=== PATIENT | male | born 1995 | race Caucasian/White ===

== ENCOUNTER 2018-11-29 19:38 | Emergency (ER) | payer MEDICARE, MEDICAID, SELFPAY ==
[2018-11-29 19:39] VITALS: BP 168/83; PULSE 109; RESP 9; TEMP 37.2; O2SAT 95; BMI 49.1
--- NOTE | 2018-11-29 20:28 | EKG12_ITS ---
Test Reason : PALPITATIONS Blood Pressure : / mmHG Vent. Rate : 095 BPM Atrial Rate : 095 BPM P-R Int : 166 ms QRS Dur : 094 ms QT Int : 364 ms P-R-T Axes : 029 -04 027 degrees QTc Int : 457 ms Normal sinus rhythm Normal ECG Confirmed by SYED GAN ([id number]), editorial director KIM MONTES ([id number]) on 12/03/2018 4:48:24 PM Referred By: ALEX Confirmed By:SYED GAN
--- NOTE | 2018-11-29 21:00 | RAD_ITS ---
STUDY: X-RAY CHEST REASON FOR EXAM: Male, 23 years old. Palpitations. TECHNIQUE: PA and lateral. COMPARISON: None. FINDINGS: The lungs are clear and expanded. There is no demonstrated pleural abnormality. Normal size heart. Normal mediastinum and teo. Normal visualized pulmonary arteries. Normal visualized aortic arch and descending thoracic aorta. Normal visualized thoracic spine. Normal visualized ribs, clavicles, and shoulders. There is no demonstrated abnormality of the visualized soft tissue structures of the upper abdomen. RAD/Chest PA and Lateral IMPRESSION: Normal x-ray examination of the chest. Electronically Signed: Arlette Carlisle MD at 21:59 EDT Tel , Service support ,
[2018-11-29 21:04] LABS: Absolute Lymphocyte Count 1.53 X10^3/ul (0.83-4.51); Absolute Neutrophil Count 4.5 X10^3/uL (2.0-7.7); Basophil# 0.02 X10^3/uL; Basophil% 0.3 % (0-1); Eosinophil# 0.11 X10^3/uL; Eosinophils% 1.5 % (0-5); Hemoglobin 13.5 g/dl (13.0-16.5); Lymphocyte # 1.53 X10^3/ul (4.0); Lymphocyte % 21.1 % (19-41); Mean Corp Hgb Conc 32.9 g/gl (32-36); Mean Corpuscular Hgb 28.1 pg (27.0-32.0); Mean Corpuscular Volume 85.4 fL (80-94); Mean Platelet Vol. 12.5 fl (6.2-12.0); Monocyte# 1.06 X10^3/uL; Monocyte% 14.6 % (0-10); Neutrophil # 4.51 X10^3/uL (2.7-7.7); Neutrophil % 62.2 % (47-70); POSITIVE COUNT NO; POSITIVE DIFFERENTIAL NO; POSITIVE MORPHOLOGY NO; Platelet Count 218 K/mm3 (150-450); RBC Distribution Width SD 42.9 fl (35.1-43.9); White Blood Count 7.3 K/mm3 (4.4-11.0)
[2018-11-29 21:17] LABS: Anion Gap 8 (5-15); BUN 13 mg/dL (7-18); BUN/Creat Ratio 11.4 RATIO (10-20); Calcium,Total 9.1 mg/dL (8.5-10.1); Chloride 105 mmol/L (98-107); Creatinine, Serum 1.14 mg/dL (0.70-1.30); EST Glomerular Filtration Rate 84 mL/min (>60); Est Glom Filt Rate - Afr Amer 101 mL/min (>60); Estimated Creatinine Clearance 122.67 ml/min; Glucose 103 mg/dL (74-106); Potassium 3.7 mmol/L (3.5-5.1); Sodium Level 137 mmol/L (136-145)
[2018-11-29 21:38] VITALS: BP 167/81; PULSE 81; RESP 24; O2SAT 96
[2018-11-29 23:00] VITALS: BP 161/98; PULSE 86; RESP 21; O2SAT 96
--- NOTE | 2018-11-29 23:43 | ED.VISSUMM ---
- ER Visit Summary Date of Service: 11/29/18 Chief Complaint: Palpitations History of Present Illness: The patient is a 23 M who presents with palpitations that became worse today. Patient states he felt like his heart was racing. Patient states these are intermittent. Patient states it is worsened with coughing. Patient states he did have some shortness of breath and diaphoresis with this. Patient also states he has had recent cough and acid reflux symptoms. Physical Examination: Vital signs are stable. Patient is afebrile. Patient is in no acute distress. Oral mucosa is pink and moist. Neck is supple. Trachea is midline. There is no JVD noted. Heart was regular rate and rhythm. Lungs are clear and equal bilateral. Abdomen is soft. Bowel sounds are normal. There is no tenderness. There is no guarding noted. Skin is warm dry. Cranial nerves II through XII are intact. There are no focal motor or sensory deficits noted. The remaining physical exam is within normal limits. Test Results: EKG showed normal sinus rhythm with a rate of 95. There are no acute ST or T wave changes. CBC, basic metabolic profile, and troponin were obtained and were normal. Chest x-ray does not show any acute cardiopulmonary process. Emergency Department Course and Treatment: Patient had no further episodes of palpitations here in the emergency department. Patient was instructed to follow-up with his primary care physician in 5-7 days. Patient understood and was agreeable with the plan. All questions were answered. Disposition: Discharge home Impression: Palpitations This note was generated with [employer] dictation software. It may contain incorrect words, spelling, and punctuation that were not noted in review of the chart prior to signing ED Disposition - Plan for ED Patient: Disposition: Home or Assisted Living Diagnosis: Palpitations Instructions: ED Palpitations Referrals: [facility] Doctor,Out of [Primary Care Provider] - Keep James appointment
== END 2018-11-30 | disposition home or self-care (01) ==
PROVIDERS: Emergency Provider Emergency Medicine
DX: R00.2 Palpitations (principal); J45.909 Unspecified asthma, uncomplicated; K21.9 Gastro-esophageal reflux disease without esophagitis
CPT/HCPCS: 71046; 80048; 84484; 85025; 93005; 99285; A4216

== ENCOUNTER 2022-06-25 00:22 | Emergency (ER) | payer MEDICARE, MEDICAID, SELFPAY ==
[2022-06-25 00:24] VITALS: BP 147/98; PULSE 85; RESP 18; TEMP 36.8; O2SAT 97; BMI 56.6
--- NOTE | 2022-06-25 00:48 | EDS_ITS ---
HPI History of Present Illness Chief Complaint: Lower Extremity Injury Informant: patient Narrative Narrative: Patient complains of some increased discomfort of his right foot mostly near the small toe. This has been occurring over the last day. He took dressings off today and got some drainage from the small toe and an area on the right second toe also. About 2 weeks ago he had excision of warts from his toe by Dr. Harris in the office. He has been doing well until he started to have increased pain today and then some drainage. No fevers chills or sweats. He has a history of intermittent A. fib but no anticoagulation. He has a history of high blood pressure. No diabetes. He has not had fevers or chills. [facility] Medical History HTN (hypertension) Mitral valve regurgitation Pulmonic valve regurgitation Stroke Home Medications amlodipine 5 mg tablet 5 mg PO DAILY 05/23/16 [History Last Taken 05/23/16] ergocalciferol (vitamin D2) 1,250 mcg (50,000 unit) capsule (Vitamin D2) 50,000 unit PO Q7D 05/23/16 [History Last Taken Unknown] doxycycline monohydrate 100 mg capsule 100 mg PO BID #20 caps 06/25/22 [Rx Last Taken Unknown] Allergy/AdvReac Type Severity Reaction Status Date / Time erythromycin base Allergy Anaphylaxis Verified 11/29/18 19:39 [From Erythrocin] gentamicin Allergy Anaphylaxis Verified 11/29/18 19:39 Penicillins [PCN] Allergy Rash Verified 05/23/16 19:38 sertraline [From Zoloft] Allergy Anaphylaxis Verified 11/29/18 19:39 tramadol Allergy Other Verified 05/23/16 19:38 adhesive [adhesives] AdvReac Hives Verified 06/25/22 00:24 Social History Smoking Status: Never smoker ROS ROS ED Constitutional Constitutional ED: Denies chills or fever(s) Cardiovascular Cardiovascular: Denies chest pain or palpitations Respiratory/Chest Respiratory/Chest: Denies cough or dyspnea Gastrointestinal Gastrointestinal: Denies nausea or vomiting Musculoskeletal Musculoskeletal: Reports other Details: Right foot pain as in history of present illness. Integumentary Reports rash and other Details: Drainage and slight redness to the right small and second toe. Neurologic Neurologic: Denies paresthesias Endocrine Endocrinology: Denies polydipsia or polyuria Hematologic/Lymphatic Hematologic/Lymphatic: Denies lymphadenopathy Allergic/Immunologic Allergic/Immunologic ED: Denies urticaria EXAM Physical Exam Const Vital Signs: 06/25/22 00:24 Temperature 98.3 F Temperature Source Oral Pulse Rate 85 Respiratory Rate 18 Blood Pressure 147/98 H Blood Pressure Mean 114 Pulse Ox 97 Oxygen Delivery Method Room Air Positive well nourished and well developed General Appearance ED: well developed HEENT atraumatic Resp normal respiratory effort Extremity Extremity Narrative: Patient does have healing areas where there was excision done. But these areas are still bit open. There is just a hint of erythema developing around both of these areas on the second and fifth toe. There is no swelling of the foot or lymphangitic streaking at this point. No drainage currently although he had some on dressings when they were removed. Neuro no sensory deficits noted Skin Skin Narrative: See above. MDM MDM MDM Narrative Medical decision making narrative: Patient just has some early indication of wound infections with some erythema pain and drainage. We will treat him with antibiotics. We will use doxycycline which he has tolerated and been successful with in the past. He has missed a couple postoperative check appointments but I encouraged him to follow-up this week to be reseen and rechecked. Discharge Plan Triage Chief Complaint: Lower Extremity Injury ED Provider: Tommy Jimenez Dx/Rx/DC Orders Clinical Impression: Postoperative wound infection Instructions: ED Wound Infection after surgery Prescriptions: New doxycycline monohydrate 100 mg capsule 100 mg PO BID Qty: 20 0RF No Action amlodipine 5 MG tablet 5 mg PO DAILY ergocalciferol (vitamin D2) [Vitamin D2] 50,000 UNIT capsule 50,000 unit PO Q7D Primary Care Provider: Chevy White,Out of Referrals: Chevy White,Out of [Primary Care Provider] - Activity Restrictions/Additional Instructions: Follow-up with Dr. Harris. Disposition Disposition: Home, Self Care
[2022-06-25] MEDS: Doxycycline 100 MG CAPSULE PO (01:22)
== END 2022-06-25 01:33 | disposition home or self-care (01) ==
PROVIDERS: Emergency Provider Emergency Medicine; Visit Provider Emergency Medicine
DX: T81.49XA Infection following a procedure, other surgical site, initial encounter (principal); I10 Essential (primary) hypertension; Z79.899 Other long term (current) drug therapy
CPT/HCPCS: 99283

== ENCOUNTER → 2022-11-16 | Emergency (ER) | payer MEDICARE, MEDICAID, SELFPAY ==
--- NOTE | 2022-11-16 05:13 | EX.ED.DYSGE1 ---
HPI History of Present Illness Informant: patient Narrative Narrative: Patient presents noticing redness under his abdominal fold. He states he is staying with his uncle and he took a shower. He was cleaning the area and noticed that it burned when he wiped. His uncle looked at it and said he already placed a towel under there to keep it dry. Patient states he put a towel there but it did not go away. But it was just found this evening. He has no systemic symptoms. He has no diabetes in the past and he is not having polyuria polydipsia. No fevers or chills. No other complaints. No other areas of a rash. Nothing makes it better or worse but he just found it hours ago. Our computer systems were currently down in the emergency department. This prevents review of prior records, visits, labs, studies, etc. currently have no access to prior history. This limits access to history that the patient may not be familiar with and limits comparison of current data to past data. [facility] Medical History HTN (hypertension) Mitral valve regurgitation Pulmonic valve regurgitation Stroke Home Medications amlodipine 5 mg tablet 5 mg PO DAILY 05/23/16 [History Last Taken 05/23/16] ergocalciferol (vitamin D2) 1,250 mcg (50,000 unit) capsule (Vitamin D2) 50,000 unit PO Q7D 05/23/16 [History Last Taken Unknown] doxycycline monohydrate 100 mg capsule 100 mg PO BID #20 caps 06/25/22 [Rx Last Taken Unknown] Allergy/AdvReac Type Severity Reaction Status Date / Time erythromycin base Allergy Anaphylaxis Verified 11/29/18 19:39 [From Erythrocin] gentamicin Allergy Anaphylaxis Verified 11/29/18 19:39 Penicillins [PCN] Allergy Rash Verified 05/23/16 19:38 sertraline [From Zoloft] Allergy Anaphylaxis Verified 11/29/18 19:39 tramadol Allergy Other Verified 05/23/16 19:38 adhesive [adhesives] AdvReac Hives Verified 06/25/22 00:24 Social History Smoking Status: Never smoker ROS ROS ED Constitutional Constitutional ED: Denies chills or fever(s) ENT ENT ED: Denies sore throat Cardiovascular Cardiovascular: Denies chest pain Respiratory/Chest Respiratory/Chest: Denies cough or dyspnea Gastrointestinal Gastrointestinal: Denies nausea or vomiting Musculoskeletal Musculoskeletal: Denies back pain or neck pain Integumentary Reports rash Endocrine Endocrinology: Denies polydipsia or polyuria Hematologic/Lymphatic Hematologic/Lymphatic: Denies easy bleeding or easy bruising Allergic/Immunologic Allergic/Immunologic ED: Denies urticaria EXAM Physical Exam Narrative Exam Narrative: Patient awake alert no acute distress. He does have obesity. HEENT shows no sign of trauma. No thrush. Lungs are clear. Heart is regular. Abdomen is obese but not tender. When we lift up his pannus there is erythema under the fold mostly in the mid section. It has a well demarcated edge with some satellite lesions all consistent with yeast. There is no sign of a cellulitis. There were no signs of yeast under the breast tissue. Really not having much in the inguinal folds either. shows no suprapubic tenderness or CVA tenderness Neurologically patient is alert and appropriate. MDM MDM MDM Narrative Medical decision making narrative: Patient has signs of yeast in skin folds under her abdomen. He is encouraged to keep the area clean and dry and keeping a towel between the area may help this quite a bit. We will write for clotrimazole cream as well is I will write for Diflucan at 200 mg once a week for 4 weeks. He should follow-up with his physician. If this redness spreads out, becomes painful, develops fevers chills or drainage he may need to return. Discharge Plan Triage ED Provider: Tommy Jimenez Dx/Rx/DC Orders Clinical Impression: Lisa infection Prescriptions: No Action amlodipine 5 MG tablet 5 mg PO DAILY ergocalciferol (vitamin D2) [Vitamin D2] 50,000 UNIT capsule 50,000 unit PO Q7D doxycycline monohydrate 100 mg capsule 100 mg PO BID Qty: 20 0RF Primary Care Provider: JUANA OBRIEN Referrals: JUANA OBRIEN [Other] Disposition Disposition: Home, Self Care
== END | disposition home or self-care (01) ==
PROVIDERS: Emergency Provider Emergency Medicine; Visit Provider Emergency Medicine
DX: B37.2 Candidiasis of skin and nail (principal); I10 Essential (primary) hypertension; Z79.899 Other long term (current) drug therapy
CPT/HCPCS: 99282

== ENCOUNTER 2023-02-06 16:20 | Emergency (ER) | payer MEDICARE, MEDICAID, SELFPAY ==
[2023-02-06 16:20] VITALS: BP 149/95; PULSE 75; RESP 16; TEMP 36.4; O2SAT 98; BMI 57.5
--- NOTE | 2023-02-06 16:46 | EX.ED.DYSGE1 ---
HPI History of Present Illness Chief Complaint: Ear Problem Informant: patient Narrative Narrative: Patient presenting with right ear pain since he had tympanostomy tubes placed in both the ears 1 week ago by his pool technician from [place], [place] who did this closer to his home in [place]. He has been trying to get back in but he is out of town and there is no one else for him to see there, patient states he has had pain just caudal to the right ear without any discharge, fevers, chills, bleeding for the past week and this is the fourth ER visit he has had since then, stating that no one else has been able to help him. He has had no testing nor has he had any prescriptions given at the prior visits. He denies any new symptoms. He has ofloxacin drops that were given to him to use postoperatively and he has been doing those as instructed in both ears. He states he has no issues with the left ear. [facility] Medical History (Updated 02/06/23 @ 17:[address] Wang Baltazar MD) HTN (hypertension) Mitral valve regurgitation Past heart attack Pulmonic valve regurgitation Stroke Home Medications amlodipine 5 mg tablet 5 mg PO DAILY 05/23/16 [History Last Taken 05/23/16] ergocalciferol (vitamin D2) 1,250 mcg (50,000 unit) capsule (Vitamin D2) 50,000 unit PO Q7D 05/23/16 [History Last Taken Unknown] doxycycline monohydrate 100 mg capsule 100 mg PO BID #20 caps 06/25/22 [Rx Last Taken Unknown] cephalexin 500 mg capsule 500 mg PO TID #21 CAPSULES 02/06/23 [Rx Last Taken Unknown] Allergy/AdvReac Type Severity Reaction Status Date / Time erythromycin base Allergy Anaphylaxis Verified 11/29/18 19:39 [From Erythrocin] gentamicin Allergy Anaphylaxis Verified 11/29/18 19:39 Penicillins [PCN] Allergy Rash Verified 05/23/16 19:38 sertraline [From Zoloft] Allergy Anaphylaxis Verified 11/29/18 19:39 tramadol Allergy Other Verified 05/23/16 19:38 adhesive [adhesives] AdvReac Hives Verified 06/25/22 00:24 Social History Smoking Status: Never smoker ROS ROS ED Constitutional Constitutional ED: Denies chills or fever(s) ENT ENT ED: Reports ear pain right; Denies rhinorrhea or sore throat Musculoskeletal Musculoskeletal: Reports neck pain; Denies back pain Integumentary Denies abscess, Abrasions or rash Neurologic Neurologic: Denies headache(s), paresthesias or weakness EXAM Physical Exam Const Vital Signs: 02/06/23 16:20 02/06/23 16:59 Temperature 97.6 F L Temperature Source Temporal Pulse Rate 75 86 Respiratory Rate 16 16 Blood Pressure 149/95 H 127/80 H Blood Pressure Mean 113 95 Pulse Ox 98 96 Oxygen Delivery Method Room Air Room Air Positive well nourished, well developed and obese General Appearance ED: well developed and NAD Nutritional Appearance: obese HEENT Reports moist mucous membranes HEENT Narrative: Normal intraoral/posterior oropharyngeal exam. Normal bilateral EAC and TM exam, he has scarring on both TMs, no erythema, tympanostomy tubes in place bilaterally with no discharge or bleeding from them, and no discomfort with manipulating the tragus or pinna on both ears. No tenderness at the mastoid process on the right, but he does have tenderness just caudal to this, with a few probable enlarged mobile tender lymph nodes superficial cervical/periauricular. No anterior auricular nodes or parotid tenderness/swelling. Eyes PERRL and EOMs intact bilaterally Neck supple Neck Narrative: Tender lymphadenopathy right side otherwise supple with full range of motion Resp normal respiratory effort Extremity normal to inspection Neuro oriented x3, CN's II-XII intact bilaterally, no sensory deficits noted and gait normal Motor Exam: strength 5/5 throughout Psych mental status grossly normal Skin no rashes or lesions noted and no wounds MDM MDM MDM Narrative Medical decision making narrative: Obtained a CT scan of the ear/orbit/sella/skull base. I reviewed the images and the radiologist report and I agree with it. Basically negative for anything acute. The cause of the right periauricular lymphadenopathy is unknown, but least we were able to rule out dangerous phenomena such as malignant otitis media, mastoiditis. Given that he has been seen reportedly 4 times for this in the past week, I am going to put him on cephalexin empirically and advised that he try to follow-up with someone in the office is soon as possible. He is allergic to penicillin, it is not anaphylaxis so we will try cephalexin. Radiography Diagnostic Testing: Clinical Impression(s) from Imaging Studies CT Orbit Sella Inner 02/06/23 17:15 IMPRESSION: Negative CT of the internal auditory canals and temporal bones. Electronically Signed: Krystian Paz MD at 17:40 EDT Reading Location ID and State: [facility] / [place] , Service support , Discharge Plan Triage Chief Complaint: Ear Problem ED Provider: Wang Baltazar Dx/Rx/DC Orders Clinical Impression: Lymphadenopathy, periauricular, History of tympanostomy tube placement Instructions: ED Earache Without Infection (Adult) Prescriptions: New cephalexin [cephalexin] 500 mg capsule 500 mg PO TID Qty: 21 0RF No Action amlodipine 5 MG tablet 5 mg PO DAILY ergocalciferol (vitamin D2) [Vitamin D2] 50,000 UNIT capsule 50,000 unit PO Q7D doxycycline monohydrate 100 mg capsule 100 mg PO BID Qty: 20 0RF Primary Care Provider: Brian Carter Referrals: [facility] Doctor,Out of [Non-Staff] - Doctor,Your [Non-Staff] - As soon as possible (Call your ENT office to make an appointment with any provider as soon as possible at any location) Disposition Disposition: Home, Self Care
[2023-02-06 16:59] VITALS: BP 127/80; PULSE 86; RESP 16; O2SAT 96
--- NOTE | 2023-02-06 17:15 | CT_ITS ---
EXAM: CT TEMPORAL BONES WITHOUT INTRAVENOUS CONTRAST CLINICAL INDICATION: ear pain TECHNIQUE: Routine CT protocol was performed of the internal auditory canals and temporal bones without intravenous contrast. 2-D reformats were performed by the technologist. This CT exam was performed using one or more of the following dose reduction techniques: automated exposure control, adjustment of the mA and/or kV according to patient size, and/or use of iterative reconstruction technique. RADIATION DOSE: CTDIvol = 67.58 mGy, DLP = 941.49 mGy-cm COMPARISON: No relevant prior studies available. FINDINGS: RIGHT OSSICLES AND MIDDLE EAR: Unremarkable. Well aerated. Ossicles and scutum intact. RIGHT COCHLEA: Unremarkable. RIGHT VESTIBULE: Unremarkable. RIGHT SEMICIRCULAR CANALS: Unremarkable. RIGHT INTERNAL AUDITORY CANAL: Unremarkable. No osseous erosion or widening of the canal. RIGHT EXTERNAL AUDITORY CANAL: Clear. RIGHT MASTOID AIR CELLS: Unremarkable. Well aerated. LEFT OSSICLES AND MIDDLE EAR: Unremarkable. Well aerated. Ossicles and scutum intact. LEFT COCHLEA: Unremarkable. LEFT VESTIBULE: Unremarkable. LEFT SEMICIRCULAR CANALS: Unremarkable. LEFT INTERNAL AUDITORY CANAL: Unremarkable. No osseous erosion or widening of the canal. LEFT EXTERNAL AUDITORY CANAL: Clear. LEFT MASTOID AIR CELLS: Unremarkable. Well aerated. BONES/JOINTS: No discrete lytic or blastic abnormalities. SOFT TISSUES: Unremarkable. BRAIN AND EXTRA-AXIAL SPACES: Unremarkable as visualized. Cerebello-pontine angles are unremarkable. CT/Orb Sella Post Fossa Ear w/o IMPRESSION: Negative CT of the internal auditory canals and temporal bones. Electronically Signed: Krystian Paz MD at 17:40 EDT ,
[2023-02-06 17:45] VITALS: BP 128/75; PULSE 81; RESP 18; O2SAT 99
== END 2023-02-06 18:03 | disposition home or self-care (01) ==
PROVIDERS: Emergency Provider Emergency Medicine; PCP Family Medicine; Visit Provider Emergency Medicine
DX: R59.0 Localized enlarged lymph nodes (principal); I10 Essential (primary) hypertension; H92.01 Otalgia, right ear; Z96.22 Myringotomy tube(s) status
CPT/HCPCS: 70480; 99282

== ENCOUNTER 2024-03-20 00:36 | Emergency (ER) | payer MEDICARE, MEDICAID, SELFPAY ==
[2024-03-20 00:37] VITALS: BP 153/90; PULSE 95; RESP 18; TEMP 36.3; O2SAT 97; BMI 61.7
--- NOTE | 2024-03-20 00:51 | RAD_ITS ---
INDICATION: pain EXAMINATION/TECHNIQUE: X-RAY - LEFT XR Ankle Min 3 Views 3 VIEWS COMPARISON: FINDINGS: BONES: No fracture demonstrated. JOINTS: No dislocation. SOFT TISSUES: Soft tissue swelling most pronounced overlying the lateral malleolus. RAD/Ankle min 3 Views IMPRESSION: Soft tissue swelling. No evidence of fracture. Electronically Signed: Lani Obrien MD at 1:31 EDT ,
--- NOTE | 2024-03-20 01:09 | EDS_ITS ---
HPI History of Present Illness Chief Complaint: Edema Informant: patient Narrative Narrative: 1-2 days of pain in the left lateral foot/ankle when he moves it a certain way. No known injury. 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 He states when he walks or bears weight he does not have pain. Only when he does a certain movement, mostly when reproducing ankle/foot inversion. PFSH PFS Medical History Past heart attack Stroke Mitral valve regurgitation Pulmonic valve regurgitation HTN (hypertension) Home Medications ?Medication ?Instructions ?Recorded ?Last Taken ?Type amlodipine 5 mg tablet 5 mg PO DAILY 05/23/16 05/23/16 History ergocalciferol (vitamin D2) 1,250 50,000 unit PO Q7D 05/23/16 Unknown History mcg (50,000 unit) capsule (Vitamin D2) doxycycline monohydrate 100 mg 100 mg PO BID #20 caps 06/25/22 Unknown Rx capsule cephalexin 500 mg capsule 500 mg PO TID #21 CAPSULES 02/06/23 Unknown Rx Allergy/AdvReac Type Severity Reaction Status Date / Time erythromycin base (From Allergy Anaphylaxis Verified 03/20/24 00:40 Erythrocin) Gadolinium-MRI Contrast Allergy Shortness Verified 03/20/24 00:40 Medium of breath gentamicin Allergy Anaphylaxis Verified 03/20/24 00:40 Penicillins (PCN) Allergy Rash Verified 03/20/24 00:40 sertraline (From Zoloft) Allergy Anaphylaxis Verified 03/20/24 00:40 tramadol Allergy Other Verified 03/20/24 00:40 adhesive (adhesives) AdvReac Hives Verified 03/20/24 00:40 Social History Smoking Status: Never smoker ROS ROS ED Constitutional Constitutional ED: Denies chills or fever(s) Musculoskeletal Musculoskeletal: Reports extremity pain; Denies neck pain Integumentary Denies Abrasions, rash or wounds Neurologic Neurologic: Denies paresthesias or weakness EXAM Physical Exam Const Vital Signs: 03/20/24 00:37 Temperature 97.4 F L Temperature Source Temporal Pulse Rate 95 Respiratory Rate 18 Blood Pressure 153/90 H Blood Pressure Mean 111 Pulse Ox 97 Oxygen Delivery Method Room Air Positive well nourished, well developed and obese General Appearance ED: well developed and NAD Nutritional Appearance: obese Neck full ROM and supple Back/Spine normal ROM and normal to inspection Extremity full ROM Extremity Narrative: There is some swelling about both ankles, fairly symmetric. He is nontender at the bony malleoli of the left ankle, he does have reproducible tenderness in the area just distal to the lateral malleolus in the area of the ATFL, which increases significantly with passive inversion of the foot at the ankle. No tenderness at the base of the fifth metatarsal. No instability. No proximal fibular tenderness. No signs of rash or overlying erythema. Neuro oriented x3, no focal motor deficits and no sensory deficits noted Sensorium / Orientation: alert Psych mental status grossly normal and thought process normal Skin no wounds Rashes: no rashes MDM MDM MDM Narrative Medical decision making narrative: Obtained a 3 view x-ray of the left ankle to rule out bony abnormalities, on my interpretation there is some chronic abnormality in the posterior aspect of the talus/calcaneus but there is no acute fracture. The mortise is normal. Reassured and given an Jackson wrap I would treat this like a grade 1 sprain, he is comfortable with that plan. Discharge Plan Triage Chief Complaint: Edema ED Provider: Wang Baltazar Dx/Rx/DC Orders Clinical Impression: Sprain of ankle, left Instructions: ED Ankle Sprain (Adult) Prescriptions: No Action amlodipine 5 MG tablet 5 mg PO DAILY ergocalciferol (vitamin D2) [Vitamin D2] 50,000 UNIT capsule 50,000 unit PO Q7D doxycycline monohydrate 100 mg capsule 100 mg PO BID Qty: 20 0RF cephalexin [cephalexin] 500 mg capsule 500 mg PO TID Qty: 21 0RF Primary Care Provider: NOT,DEFINED Referrals: Doctor,Your [Non-Staff] - 10-14 Days if not better Print Language: Estonian Disposition Disposition: Home, Self Care
[2024-03-20 01:16] VITALS: BP 141/94; PULSE 78; RESP 16; TEMP 36.8; O2SAT 100
== END 2024-03-20 01:18 | disposition home or self-care (01) ==
PROVIDERS: Emergency Provider Emergency Medicine; Visit Provider Emergency Medicine
DX: S93.402A Sprain of unspecified ligament of left ankle, initial encounter (principal); I10 Essential (primary) hypertension; E66.9 Obesity, unspecified; Z86.73 Personal history of transient ischemic attack (TIA), and cerebral infarction without residual deficits; X58.XXXA Exposure to other specified factors, initial encounter; I25.2 Old myocardial infarction
CPT/HCPCS: 73610; 99283

== ENCOUNTER 2024-12-09 00:57 | Emergency (ER) | payer MEDICARE, MEDICAID, SELFPAY ==
[2024-12-09 00:57] VITALS: PULSE 73; RESP 22; TEMP 36.6; O2SAT 97; BMI 64.0
--- NOTE | 2024-12-09 01:27 | EKG12_ITS ---
Test Reason : DYSRHYTHMIA Blood Pressure : */* mmHG Vent. Rate : 78 BPM Atrial Rate : 78 BPM P-R Int : 168 ms QRS Dur : 98 ms QT Int : 388 ms P-R-T Axes : 33 -4 14 degrees QTcB Int : 442 ms Sinus rhythm with marked sinus arrhythmia Otherwise normal ECG Confirmed by KENDALL TOMLINSON, LONNIE ([id number]), editor newspaper JOSEFA MEI ([id number]) on 12/09/2024 8:17:54 AM Referred By: Confirmed By: LONNIE ARGUETA MD
[2024-12-09 02:08] LABS: Absolute Lymphocyte Count 1.92 X10^3/uL (0.83-4.51); Absolute Neutrophil Count 5.7 X10^3/uL (2.0-7.7); Basophil# 0.03 X10^3/uL; Basophil% 0.4 % (0-1); Eosinophil# 0.12 X10^3/uL; Eosinophils% 1.4 % (0-5); Hemoglobin 13.3 g/dL (13.0-16.5); Lymphocyte # 1.92 X10^3/ul (0.83-4.51); Mean Corp Hgb Conc 32.4 g/dL (32-36); Mean Corpuscular Hgb 27.8 pg (27.0-32.0); Mean Corpuscular Volume 85.8 fL (80-94); Mean Platelet Vol. 12.9 fl (6.2-12.0); Monocyte# 0.56 X10^3/uL; Monocyte% 6.7 % (0-10); NRBC Flagged by Analyzer 0 % (0-5); Neutrophil # 5.68 X10^3/uL (2.7-7.7); Neutrophil % 68.3 % (47-70); Platelet Count 331 K/mm3 (150-450); RBC Distribution Width CV 14.7 % (11.6-14.6); RBC Distribution Width SD 46.1 fl (35.1-43.9); Red Blood Count 4.78 M/mm3 (4.6-6.2); White Blood Count 8.3 K/mm3 (4.4-11.0)
[2024-12-09 02:39] LABS: Troponin T High Sensitivity < 6 ng/L (<=22)
[2024-12-09 02:57] VITALS: BP 151/86; PULSE 70; RESP 18; O2SAT 96
--- NOTE | 2024-12-09 03:05 | RAD_ITS ---
PROCEDURE: CHEST PA AND LATERAL 12/09/2024 REASON FOR EXAM: CHEST PAIN TECHNIQUE: PA and lateral views of the chest. COMPARISON: 11/29/2018 FINDINGS: The patient is rotated to the right. The lungs appear clear. The cardiac and mediastinal contours appear within limits. The visualized osseous structures appear within limits. RAD/Chest PA and Lateral IMPRESSION: No evidence of acute disease. Reading Location: [id number]
--- NOTE | 2024-12-09 03:13 | EX.ED.DYSGE1 ---
HPI History of Present Illness Chief Complaint: General Illness Informant: patient Narrative Narrative: Patient is a 29-year-old male with past medical history of hypertension morbid obesity anxiety and CAD. He presents today with multiple complaints. He states that he has had mild congestion and cough and intermittent shortness of breath. He states that he has felt intermittent palpitations and dizziness. He states that he has been under increased stress as well as he is trying to undergo bariatric surgery. He states that over the last few days as he falls asleep at night he will develop the symptoms of dizziness and shortness of breath and is concerned some that he may have a cardiac event or an abnormal cardiac rhythm and with this comes in for evaluation [facility] Medical History Past heart attack Stroke Mitral valve regurgitation Pulmonic valve regurgitation HTN (hypertension) Home Medications ?Medication ?Instructions ?Recorded ?Last Taken ?Type ergocalciferol (vitamin D2) 1,250 50,000 unit PO Q7D 05/23/16 Unknown History mcg (50,000 unit) capsule (Vitamin D2) albuterol sulfate 90 mcg/actuation 2 puff inhalation Q6H PRN PRN 12/09/24 Unknown History aerosol inhaler shortness of breath or wheezing aspirin 81 mg chewable tablet 1 tab PO DAILY 12/09/24 Unknown History cefdinir 300 mg capsule 300 mg PO BID 12/09/24 Unknown History cetirizine 10 mg tablet 10 mg PO DAILY 12/09/24 Unknown History cyanocobalamin (vitamin B-12) 500 500 mcg PO DAILY 12/09/24 Unknown History mcg tablet dicyclomine 10 mg capsule 10 mg PO TID PRN PRN abdominal pain 12/09/24 Unknown History docusate sodium 100 mg capsule 100 mg PO BID PRN PRN constipation 12/09/24 Unknown History duloxetine 20 mg capsule,delayed 20 mg PO DAILY 12/09/24 Unknown History release famotidine 40 mg tablet 40 mg PO Q12.TCU 12/09/24 Unknown History ferrous sulfate 325 mg (65 mg 325 mg PO DAILY 12/09/24 Unknown History iron) tablet (FeroSul) fluticasone fur. 200 mcg-umeclid 1 ea inhalation DAILY 12/09/24 Unknown History 62.5 mcg-vilant 25 mcg inhalat.powder (Trelegy Ellipta) furosemide 40 mg tablet 40 mg PO PRN PRN swelling 12/09/24 Unknown History metoprolol succinate 100 mg 100 mg PO DAILY 12/09/24 Unknown History tablet,extended release 24 hr multivitamin-ferrous 2 tab PO DAILY 12/09/24 Unknown History fumarate-folic acid 18 mg-400 mcg tablet (Certavite-Antioxidant) semaglutide (weight loss) 1 mg/0.5 1 mg subcut Q7D 12/09/24 Unknown History mL subcutaneous pen injector (Wegovy) Allergy/AdvReac Type Severity Reaction Status Date / Time erythromycin base (From Allergy Anaphylaxis Verified 12/09/24 00:57 Erythrocin) Gadolinium-MRI Contrast Allergy Shortness Verified 12/09/24 00:57 Medium of breath gentamicin Allergy Anaphylaxis Verified 12/09/24 00:57 Penicillins (PCN) Allergy Rash Verified 12/09/24 00:57 sertraline (From Zoloft) Allergy Anaphylaxis Verified 12/09/24 00:57 tramadol Allergy Other Verified 12/09/24 00:57 adhesive (adhesives) AdvReac Hives Verified 12/09/24 00:57 ketamine AdvReac Other Verified 12/09/24 00:58 Social History Smoking Status: Current every day smoker tobacco type: e-cigarettes ROS ROS ED Constitutional Constitutional ED: Denies chills or fever(s) Eyes Eyes: Denies blurry vision or change in vision ENT ENT ED: Denies sore throat Cardiovascular Cardiovascular: Reports chest pain and palpitations Respiratory/Chest Respiratory/Chest: Reports cough and dyspnea Gastrointestinal Gastrointestinal: Denies abdominal pain, diarrhea, nausea or vomiting Genitourinary Genitourinary ED: Denies dysuria Musculoskeletal Musculoskeletal: Denies myalgias Integumentary Denies rash Neurologic Neurologic: Reports other Details: Positive dizziness ; Denies headache(s) Psychiatric Psychiatric: Reports anxiety Hematologic/Lymphatic Hematologic/Lymphatic: Denies easy bleeding or easy bruising EXAM Physical Exam Const Vital Signs: 12/09/24 00:57 12/09/24 02:57 12/09/24 03:20 Temperature 97.9 F 98.2 F Temperature Source Oral Pulse Rate 73 70 67 Respiratory Rate 22 H 18 18 Blood Pressure 151/86 H 121/69 H Blood Pressure Mean 107 86 Pulse Ox 97 96 99 Oxygen Delivery Method Room Air Positive well nourished, well developed and obese General Appearance ED: well developed; Negative for pallor Nutritional Appearance: obese HEENT HEENT Narrative: Patient has tympanostomy tubes present in bilateral TMs without secondary findings to suggest infection or displacement There is cobblestoning noted in the posterior pharynx consistent with sinus drainage without airway edema or compromise; no secondary findings to suggest infection Eyes PERRL Eyes Narrative: No nystagmus noted General Eye ED: Negative for scleral icterus Neck supple Neck Narrative: No nuchal rigidity or meningeal signs Chest Wall palpation of chest normal Resp normal respiratory effort and clear to auscultation bilaterally Resp Narrative: Breath sounds are diminished throughout but overall clear to auscultation without signs of respiratory distress Cardio regular rate and regular rhythm Rate: other Other Details: Heart is regular rate and rhythm without murmurs rubs or gallops Radial and carotid pulses are equal and symmetric No carotid bruit noted Extremity normal to inspection Extremity Narrative: No asymmetric edema no pitting edema negative Homans' sign bilaterally Neuro oriented x3, CN's II-XII intact bilaterally and no sensory deficits noted Neuro Narrative: GCS of 15 Cranial nerves II through XII are grossly intact without focal neurologic deficit No pronator drift no dysmetria no truncal ataxia NIH stroke scale score of 0 No nystagmus noted Sensorium / Orientation: alert Motor Exam: strength 5/5 throughout Psych Mood & Affect: anxious Skin no rashes or lesions noted General Skin Exam: Negative for jaundice or pallor MDM MDM MDM Narrative Medical decision making narrative: Patient arrived to the ER hypertensive but has a past medical history of this. He has multiple complaints. However with his intermittent chest discomfort and shortness of breath there is concern for acute coronary syndrome versus cardiac dysrhythmia. With his report of shortness of breath there is concern for pneumonia versus pneumothorax versus pleural effusion. As she reports shortness of breath and dizziness intermittently as well there is also concern for acute blood loss anemia or acute kidney injury or electrolyte abnormality. Secondary to his basic blood work and EKG and chest x-ray were obtained. The patient has no report or signs of trauma he does not have physical exam findings consistent of vertigo the dizziness is reportedly intermittent and he has no truncal ataxia and therefore I feel that he does not require a CT scan of his brain at this time. Patient's troponin is less than 6 and his EKG is sinus rhythm without ischemic changes and therefore my concern for acute coronary syndrome is low and I do not feel the need for repeat testing. CBC showed no white count going against infectious process and his H&H is stable going against blood loss anemia as the cause of his dizziness. We could not obtain a basic metabolic and magnesium and he did not want further blood drawl times so therefore the kidney function and electrolyte testing were canceled. The chest x-ray revealed no acute lung pathology such as widening of the mediastinum pneumonia or pneumothorax. As the patient reported symptoms mainly occurred as he was falling asleep and he does report increased stress I feel this is all an anxiety reaction and as vitals are stable and overall workup is negative there is no need for further evaluation and he is otherwise safe for discharge History & Record Review Discussion w/independent historian: Patient Lab Data Attestation: I reviewed the patient's lab results. Labs: Laboratory Results - last 24 hr 12/09/24 01:50 WBC 8.3 RBC 4.78 Hgb 13.3 Hct 41.0 MCV 85.8 MCH 27.8 MCHC 32.4 RDW Std Deviation 46.1 H RDW Coeff of Sd 14.7 H Plt Count 331 MPV 12.9 H Immature Gran % (Auto) 0.200 Neut % (Auto) 68.3 Lymph % (Auto) 23.0 Evans % (Auto) 6.7 Eos % (Auto) 1.4 Baso % (Auto) 0.4 Absolute Neuts (auto) 5.7 Absolute Lymphs (auto) 1.92 Nucleated RBC % 0 Sodium Cancelled Potassium Cancelled Chloride Cancelled Carbon Dioxide Cancelled Anion Gap Cancelled BUN Cancelled Creatinine Cancelled Estim Creat Clear Calc Cancelled Est GFR (MDRD) Non-Af Cancelled BUN/Creatinine Ratio Cancelled Glucose Cancelled Calcium Cancelled Magnesium Cancelled Troponin T High Sens < 6 Radiography Diagnostic Testing: Clinical Impression(s) from Imaging Studies Chest X-Ray 12/09/24 03:05 IMPRESSION: No evidence of acute disease. Reading Location: [facility] Chest x-ray as interpreted by the emergency medicine physician reveals no acute infiltrate pneumothorax pleural effusion or widening of the mediastinum Discharge Plan Triage Chief Complaint: General Illness ED Provider: Vladimir Coombs Dx/Rx/DC Orders Clinical Impression: Nonspecific chest pain, Dyspnea, Anxiety reaction, Morbid obesity, Hypertension Instructions: Your Body's Response to Anxiety, ED Chest Pain, Uncertain Cause Prescriptions: No Action ergocalciferol (vitamin D2) [Vitamin D2] 50,000 UNIT capsule 50,000 unit PO Q7D albuterol sulfate 90 mcg/actuation HFA aerosol inhaler 2 puff inhalation Q6H PRN PRN (Reason: shortness of breath or wheezing) cetirizine 10 mg tablet 10 mg PO DAILY cyanocobalamin (vitamin B-12) 500 mcg tablet 500 mcg PO DAILY aspirin 81 mg tablet,chewable 1 tab PO DAILY cefdinir 300 mg capsule 300 mg PO BID dicyclomine 10 mg capsule 10 mg PO TID PRN PRN (Reason: abdominal pain) duloxetine 20 mg capsule,delayed release(DR/EC) 20 mg PO DAILY famotidine 40 mg tablet 40 mg PO Q12.TCU ferrous sulfate [FeroSul] 325 mg (65 mg iron) tablet 325 mg PO DAILY docusate sodium 100 mg capsule 100 mg PO BID PRN PRN (Reason: constipation) furosemide 40 mg tablet 40 mg PO PRN PRN (Reason: swelling) metoprolol succinate 100 mg tablet extended release 24 hr 100 mg PO DAILY Certavite-Antioxidant 18-400 mg-mcg tablet 2 tab PO DAILY Trelegy Ellipta 200-62.5-25 mcg blister with device 1 ea inhalation DAILY Wegovy 1 mg/0.5 mL pen injector 1 mg SUBCUT Q7D Patient Comments: [NO ORIGINAL SIG] Primary Care Provider: Nicole Isidro Referrals: Nicole Isidro, [facility] [Primary Care Provider] - Activity Restrictions/Additional Instructions: Your workup did not show any sign of heart damage or abnormal heart rhythm and your chest x-ray does not reveal any signs of pneumonia or fluid buildup. Therefore symptoms are most likely related to breakthrough anxiety. Continue all of your home medications as directed by your doctor and return to the ER should you have any further concerns Print Language: Mongolian Disposition Disposition: Home, Self Care Discharge Date/Time: 12/09/24 03:20
[2024-12-09 03:20] VITALS: BP 121/69; PULSE 67; RESP 18; TEMP 36.8; O2SAT 99
== END 2024-12-09 03:20 | disposition home or self-care (01) ==
PROVIDERS: Emergency Provider Emergency Medicine; PCP Nurse Practitioner Family; Visit Provider Emergency Medicine
DX: R07.9 Chest pain, unspecified (principal); E66.01 Morbid (severe) obesity due to excess calories; I10 Essential (primary) hypertension; I25.10 Atherosclerotic heart disease of native coronary artery without angina pectoris; F41.1 Generalized anxiety disorder; I25.2 Old myocardial infarction; Z86.73 Personal history of transient ischemic attack (TIA), and cerebral infarction without residual deficits; F17.290 Nicotine dependence, other tobacco product, uncomplicated; R06.00 Dyspnea, unspecified; R42 Dizziness and giddiness; R05.9 Cough, unspecified
CPT/HCPCS: 71046; 84484; 85025; 93005; 99282; A4216